=== PATIENT | male | born 1955 | race Two or more races ===

== ENCOUNTER 2016-01-26 15:30 | Inpatient (IN) | payer OTHER ==
[2016-01-26 17:07] VITALS: BMI 28.3
--- NOTE | 2016-01-26 17:42 | HP ---
CIWA Score - CIWA Score Nausea/Vomitin-Mild Nausea/No Vomiting Muscle Tremors: 4-Moderate,w/Arms Extend Anxiety: 4-Mod. Anxious/Guarded Agitation: 4-Moderately Restless Paroxysmal Sweats: 1-Minimal Palms Moist Orientation: 1-Uncertain about Date Tacttile Disturbances: 0-None Auditory Disturbances: 0-None Visual Disturbances: 0-None Headache: 0-None Present CIWA-Ar Total Score: 15 Admission ROS BHS - HPI Chief Complaint: WITHDRAWAL SX Allergies/Adverse Reactions: Allergies Allergy/AdvReac Type Severity Reaction Status Date / Time No Known Allergies Allergy Verified 01/26/16 17:27 History of Present Illness: 60 YEARS OLD MALE WITH LONG HISTORY OF ALCOHOL DEPENDENCE DENIES MEDICAL HAS DEPRESSION IS ADMITTED TO DETOX Exam Limitations: No Limitations - Ebola screening Have you traveled outside of the country in the last 21 days: No Have you had contact with anyone from an Ebola affected area: No Have you been sick,other than usual withdrawal symptoms: No Do you have a fever: No - Review of Systems Constitutional: Chills, Changes in sleep, Weight Stable EENT: reports: No Symptoms Reported Respiratory: reports: Cough (POST NASAL DRIP) Cardiac: reports: No Symptoms Reported GI: reports: Poor Fluid Intake, Indigestion, Abdominal cramping : reports: No Symptoms Reported Musculoskeletal: reports: Back Pain, Joint Pain, Muscle Pain, Neck Pain Neuro: reports: Tremors Endocrine: reports: No Symptoms Reported Hematology: reports: No Symptoms Reported Psychiatric: reports: Judgement Intact, Depressed Other Systems: Reviewed and Negative Patient History - Patient Medical History Hx Anemia: No Hx Asthma: No Hx Chronic Obstructive Pulmonary Disease (COPD): No Hx Cancer: No Hx Cardiac Disorders: No Hx Congestive Heart Failure: No Hx Hypertension: No Hx Hypercholesterolemia: No Hx Pacemaker: No HX Cerebrovascular Accident: No Hx Seizures: No Hx Dementia: No Hx Diabetes: No Hx Gastrointestinal Disorders: No Hx Liver Disease: No Hx Genitourinary Disorders: Yes (11/2015 DUE TO VACOMYCIN) Hx Sexually Transmitted Disorders: No Hx Renal Disease (ESRD): No Hx Thyroid Disease: No Hx Human Immunodeficiency Virus (HIV): No Hx Hepatitis C: No Hx Depression: Yes Hx Suicide Attempt: No Hx Bipolar Disorder: No Hx Schizophrenia: No - Patient Surgical History Past Surgical History: Yes Hx Neurologic Surgery: Yes (CERVICAL/BACK) Hx Cataract Extraction: No Hx Cardiac Surgery: No Hx Lung Surgery: No Hx Breast Surgery: No Hx Breast Biopsy: No Hx Abdominal Surgery: No Hx Appendectomy: No Hx Cholecystectomy: No Hx Genitourinary Surgery: No Hx Orthopedic Surgery: Yes (LEFT FIFTH FINGER FX 2016) Anesthesia Reaction: No - PPD History Previous Implant?: Yes Documented Results: Negative w/o proof Implanted On Prior R Admission?: No PPD to be Administered?: Yes - Smoking Cessation Smoking history: Former smoker Have you smoked in the past 12 months: No Aproximately how many cigarettes per day: 0 Cigars Per Day: 0 Hx Chewing Tobacco Use: No Initiated information on smoking cessation: Yes 'Breaking Loose' booklet given: 01/26/16 - Substance & Tx. History Hx Alcohol Use: Yes Hx Substance Use: Yes Substance Use Type: Alcohol, Cocaine Hx Substance Use Treatment: Yes - Substances Abused Alcohol Route: Oral Frequency: Daily Amount used: CHERELLE OLSEN Age of first use: 19 Date of Last Use: 01/26/16 Family Disease History - Family Disease History Family Disease History: [place]: Father (), Other: Mother () Admission Physical Exam S - Vital Signs Vital Signs: Vital Signs - 24 hr 01/26/16 17:04 Temperature 97.1 F L Pulse Rate 92 H Respiratory 18 Rate Blood Pressure 132/104 - Physical General Appearance: Yes: Nourished, Appropriately Dressed, Tremorous, Irritable , Sweating, Anxious HEENTM: Yes: Hearing grossly Normal, Normal ENT Inspection, Normocephalic, Normal Voice Respiratory: Yes: Chest Non-Tender, Lungs Clear, Normal Breath Sounds, No Respiratory Distress, No Accessory Muscle Use Neck: Yes: Supple, Trachea in good position Breast: Yes: Breasts Symetrical Cardiology: Yes: Regular Rhythm, S1, S2, Tachycardia Abdominal: Yes: Non Tender, Soft Genitourinary: Yes: Within Normal Limits Back: Yes: Normal Inspection Musculoskeletal: Yes: full range of Motion, Gait Steady, Back pain, Muscle Pain Extremities: Yes: Normal Inspection, Normal Range of Motion, Non-Tender, Tremors Neurological: Yes: Alert, Motor Strength 5/5, Normal Response, Depressed Affect Integumentary: Yes: Normal Color, Warm, Clammy Lymphatic: Yes: Within Normal Limits - Diagnostic (1) Alcohol dependence with uncomplicated withdrawal Current Visit: Yes Status: Acute (2) Depression Current Visit: Yes Status: Suspected Qualifiers: Depression Type: dysthymia Qualified Code(s): F34.1 - Dysthymic disorder (3) History of gastroesophageal reflux (GERD) Current Visit: Yes Status: Chronic (4) Multiple sites of spinal cord injury Current Visit: Yes Status: Chronic Comment: TRAUMA 1988 - SURGERIES 2015 Cleared for Admission [facility] - Detox or Rehab [facility] Level of Care: Medically Managed Detox Regimen/Protocol: Librium S Breath Alcohol Content Breath Alcohol Content: 0 Vital Signs - Vital Signs Vital Signs Refused: No Temperature: 97.1 F Temperature Source: Oral Pulse Rate: 92 Respiratory Rate: 18 Blood Pressure: 132/104 BP Location: Left Arm Blood Pressure Position: Sitting - Height Height: 5 ft 7 in - Weight Weight: 181 lb Weight Measurement Method: Standing Scale Body Mass Index (BMI): 28.3 - Bowel Function Bowel Movement: No Urine Drug Screen - Results Drug Screen Negative: No Urine Drug Screen Results: CHRIS-Cocaine, OPI-Opiates
[2016-01-26] MEDS ORDERED: P-EPHED 60MG/TRIPROLIDI 2.5MG TABLET PO PRN (17:48)
[2016-01-26] MEDS ORDERED: ACETAMINOPHEN 325 MG TABLET (FP) PO PRN (17:48)
[2016-01-26] MEDS ORDERED: MAGNESIUM HYDROX 2400MG/30ML ORAL SUSPENSION 30 ML CUP PO PRN (17:48)
[2016-01-26] MEDS ORDERED: MAGNESIUM CITRATE 300 ML BOTTLE PO PRN (17:48)
[2016-01-26] MEDS ORDERED: guaiFENesin/D-METHORPHAN HB 10 ML UNIT-DOSE CUPS PO PRN (17:48)
[2016-01-26] MEDS ORDERED: chlordiazePOXIDE HCL 25 MG CAPSULE PO PRN (17:48)
[2016-01-26] MEDS ORDERED: LOPERAMIDE HCL 2 MG CAPSULE PO PRN (17:48)
[2016-01-26] MEDS ORDERED: MENTHOL/PHENOL 1 EACH UD MM PRN (17:48)
[2016-01-26] MEDS ORDERED: hydrOXYzine PAMOATE 50 MG CAPSULE (FP) PO PRN (17:54)
[2016-01-26] MEDS ORDERED: cloNIDine HCL 0.1 MG TABLET PO PRN (17:56)
[2016-01-26] MEDS ORDERED: chlordiazePOXIDE HCL 25 MG CAPSULE PO ONE (18:30)
[2016-01-26] MEDS: chlordiazePOXIDE HCL 25 MG CAPSULE PO SCH (22:58)
[2016-01-26] MEDS: THIAMINE HCL 100 MG TABLET (FP) PO SCH (22:59)
[2016-01-27] MEDS: chlordiazePOXIDE HCL 25 MG CAPSULE PO SCH ×2 (06:10→22:49)
[2016-01-27 09:29] LABS: MCH 30.1 pg (25.7-33.7); MCHC 33.3 g/dl (32.0-35.9); MEAN CELL VOLUME 90.4 fl (80-96); MEAN PLT VOLUME 8.6 fl (7.5-11.1); PLATELET COUNT 272 K/MM3 (134-434); RDW 13.6 % (11.9-15.9)
[2016-01-27 09:45] LABS: ALBUMIN 3.5 g/dl (3.4-5.0); ANION GAP 10 (8-16); BILIRUBIN,TOTAL 0.4 mg/dL (0.2-1.0); CALCIUM 8.8 mg/dL (8.5-10.1); CO2 26 mmol/L (21-32); CREATININE 1.1 mg/dL (0.7-1.3); GLUCOSE,RANDOM 90 mg/dL (74-106); SGOT/AST 13 U/L (15-37); SGPT/ALT 29 U/L (12-78); TOT PROT 6.5 g/dl (6.4-8.2)
[2016-01-27 09:46] LABS: ALK PHOS 53 U/L (45-117)
--- NOTE | 2016-01-27 09:52 | PN ---
[facility] CIWA - CIWA Score Nausea/Vomitin-No Nausea/No Vomiting Muscle Tremors: 2 Anxiety: 4-Mod. Anxious/Guarded Agitation: 2 Paroxysmal Sweats: 3 Orientation: 0-Oriented Tacttile Disturbances: 0-None Auditory Disturbances: 0-None Visual Disturbances: 0-None Headache: 0-None Present CIWA-Ar Total Score: 11 S Progress Note (SOAP) Subjective: ANXIETY,TREMORS,SWEATING,INTERRUPTED SLEEP,RESTLESS. Objective: 01/27/16 09:50 Vital Signs - 8 hr 01/27/16 01/27/16 03:30 06:39 Temperature 95.6 F L Pulse Rate 76 Respiratory 20 18 Rate Blood Pressure 133/82 Assessment: 01/27/16 09:51 WITHDRAWAL SX. Plan: CONTINUE DETOX
--- NOTE | 2016-01-27 10:02 | CONSULT ---
[facility] Psychiatric Consult - Data Date of interview: 01/27/16 Admission source: [facility] Identifying data: Mr Milligan is a 60 years old male, father of 2 daughters, homeless seeking detox treatment for alcohol Substance Abuse History: - Smoking Cessation. Smoking history: Former smoker. Have you smoked in the past 12 months: No. Aproximately how many cigarettes per day: 0. Cigars Per Day: 0. Hx Chewing Tobacco Use: No. Initiated information on smoking cessation: Yes. 'Breaking Loose' booklet given: . - Substance & Tx. History. Hx Alcohol Use: Yes. Hx Substance Use: Yes. Substance Use Type: Alcohol, Cocaine. Hx Substance Use Treatment: Yes. - Substances Abused. Alcohol. Route: Oral. Frequency: Daily. Amount used: QUART VOLKA. Age of first use: 19. Date of Last Use: 01/26/16 Medical History: Significant for history of S/P cervical spine and back surgery and S/P fracture left 5th finger in 2005 Psychiatric History: Reports receiving treatment depression since 1992. He currently sees Dr Hever Jeffers, a private psychiatrist in [place] and he is prescribed Wellbutrin XL 300 mg po daily, trazadone 50 mg po HS, Xanax 2 mg po BID prn and Adderal 20 mg po BID. Denies history of previous psychiatric hospitalization or suicidal attempt. At present, Denies feeling depressed but reports experiences difficulty to sleep Mental Status Exam - Mental Status Exam Alert and Oriented to: Time, Place, Person Cognitive Function: Fair Patient Appearance: Well Groomed Mood: Hopeful, Euthymic Affect: Appropriate Patient Behavior: Cooperative Speech Pattern: Clear Voice Loudness: Normal Thought Process: Intact Thought Disorder: Not Present Hallucinations: Denies Suicidal Ideation: Denies Homicidal Ideation: Denies Insight/Judgement: Poor Sleep: Poorly Appetite: Good Muscle strength/Tone: Normal Gait/Station: Normal Psychiatric Findings - Problem List ([place] 1, 2,3) (1) MDD (major depressive disorder), recurrent episode Current Visit: Yes Status: Acute (2) Alcohol dependence with uncomplicated withdrawal Current Visit: Yes Status: Acute (3) History of gastroesophageal reflux (GERD) Current Visit: Yes Status: Chronic (4) Multiple sites of spinal cord injury Current Visit: Yes Status: Chronic Comment: TRAUMA 1988 - SURGERIES 2015 - Initial Treatment Plan Initial Treatment Plan: Continue Well butrin Xl 300 mg po daily and Trazadone 50 mg po HS
[2016-01-27] MEDS: PRENATAL VITAMINS W/ FOLIC ACID TABLET (FP) PO SCH (10:43)
[2016-01-27] MEDS: LIDOCAINE 5% TOPICAL PATCH TP SCH (10:45)
[2016-01-27 15:04] LABS: URINE APPEARANCE CLEAR; URINE BILIRUBIN NEGATIVE (NEGATIVE); URINE BLOOD NEGATIVE (NEGATIVE); URINE COLOR LTYELLOW; URINE GLUCOSE (UA) NEGATIVE (NEGATIVE); URINE KETONE NEGATIVE (NEGATIVE); URINE LEUK ESTERASE NEGATIVE (NEGATIVE); URINE NITRITE NEGATIVE (NEGATIVE); URINE PROTEIN NEGATIVE (NEGATIVE); URINE UROBILINOGEN NEGATIVE E.U./dl (0.2-1.0)
[2016-01-27] MEDS: traZODone HCL 50 MG TABLET (FP) PO SCH (22:48)
[2016-01-27] MEDS: THIAMINE HCL 100 MG TABLET (FP) PO SCH (22:48)
[2016-01-28] MEDS: chlordiazePOXIDE HCL 25 MG CAPSULE PO SCH ×3 (06:23→17:41)
[2016-01-28] MEDS: CYCLOBENZAPRINE HCL 10 MG TABLET (FP) PO PRN (06:24)
[2016-01-28] MEDS: LIDOCAINE 5% TOPICAL PATCH TP SCH (11:17)
[2016-01-28] MEDS: PRENATAL VITAMINS W/ FOLIC ACID TABLET (FP) PO SCH (11:17)
--- NOTE | 2016-01-28 12:06 | PN ---
[facility] CIWA - CIWA Score Nausea/Vomitin-No Nausea/No Vomiting Muscle Tremors: 2 Anxiety: 3 Agitation: 3 Paroxysmal Sweats: 2 Orientation: 0-Oriented Tacttile Disturbances: 0-None Auditory Disturbances: 0-None Visual Disturbances: 0-None Headache: 0-None Present CIWA-Ar Total Score: 10 S Progress Note (SOAP) Subjective: SWEATING,INTERRUPTED SLEEP,RESTLESS Objective: 01/28/16 12:05 Vital Signs - 8 hr 01/28/16 01/28/16 06:47 11:25 Temperature 96.8 F L 96.3 F L Pulse Rate 81 79 Respiratory 18 20 Rate Blood Pressure 140/88 153/99 Laboratory Last Values WBC 10.0 K/mm3 (4.0-10.0) 01/27/16 06:00 RBC 4.34 M/mm3 (4.00-5.60) 01/27/16 06:00 Hgb 13.1 GM/dL (11.7-16.9) 01/27/16 06:00 Hct 39.2 % (35.4-49) 01/27/16 06:00 MCV 90.4 fl (80-96) 01/27/16 06:00 MCHC 33.3 g/dl (32.0-35.9) 01/27/16 06:00 RDW 13.6 % (11.9-15.9) 01/27/16 06:00 Plt Count 272 K/MM3 (134-434) 01/27/16 06:00 MPV 8.6 fl (7.5-11.1) 01/27/16 06:00 Sodium 142 mmol/L (136-145) 01/27/16 06:00 Potassium 4.5 mmol/L (3.5-5.1) 01/27/16 06:00 Chloride 106 mmol/L (98-107) 01/27/16 06:00 Carbon Dioxide 26 mmol/L (21-32) 01/27/16 06:00 Anion Gap 10 (8-16) 01/27/16 06:00 BUN 14 mg/dL (7-18) 01/27/16 06:00 Creatinine 1.1 mg/dL (0.7-1.3) 01/27/16 06:00 Creat Clearance w eGFR > 60 (>60) 01/27/16 06:00 Random Glucose 90 mg/dL (74-106) 01/27/16 06:00 Calcium 8.8 mg/dL (8.5-10.1) 01/27/16 06:00 Total Bilirubin 0.4 mg/dL (0.2-1.0) 01/27/16 06:00 AST 13 U/L (15-37) L 01/27/16 06:00 ALT 29 U/L (12-78) 01/27/16 06:00 Alkaline Phosphatase 53 U/L (45-117) 01/27/16 06:00 Total Protein 6.5 g/dl (6.4-8.2) 01/27/16 06:00 Albumin 3.5 g/dl (3.4-5.0) 01/27/16 06:00 Urine Color Ltyellow 01/27/16 12:05 Urine Appearance Clear 01/27/16 12:05 Urine pH 6.0 (5.0-8.0) 01/27/16 12:05 Ur Specific [place] 1.012 (1.001-1.035) 01/27/16 12:05 Urine Protein Negative (NEGATIVE) 01/27/16 12:05 Urine Glucose (UA) Negative (NEGATIVE) 01/27/16 12:05 Urine Ketones Negative (NEGATIVE) 01/27/16 12:05 Urine Blood Negative (NEGATIVE) 01/27/16 12:05 Urine Nitrite Negative (NEGATIVE) 01/27/16 12:05 Urine Bilirubin Negative (NEGATIVE) 01/27/16 12:05 Urine Urobilinogen Negative E.U./dl (0.2-1.0) 01/27/16 12:05 Ur Leukocyte Esterase Negative (NEGATIVE) 01/27/16 12:05 RPR Titer Nonreactive (NONREACTIVE) 01/27/16 06:00 LABS NOTED Assessment: 01/28/16 12:05 WITHDRAWAL SX. Plan: CONTINUE DETOX
[2016-01-28] MEDS: IBUPROFEN 400 MG TABLET (FP) PO PRN (13:07)
[2016-01-28] MEDS: THIAMINE HCL 100 MG TABLET (FP) PO SCH (22:25)
[2016-01-28] MEDS: chlordiazePOXIDE 5 MG CAPSULE PO SCH (22:25)
[2016-01-28] MEDS: traZODone HCL 50 MG TABLET (FP) PO SCH (22:25)
[2016-01-29] MEDS: chlordiazePOXIDE 5 MG CAPSULE PO SCH ×2 (05:57→10:16)
[2016-01-29] MEDS: CYCLOBENZAPRINE HCL 10 MG TABLET (FP) PO PRN (05:57)
[2016-01-29] MEDS: PRENATAL VITAMINS W/ FOLIC ACID TABLET (FP) PO SCH (10:16)
[2016-01-29] MEDS: LIDOCAINE 5% TOPICAL PATCH TP SCH (10:16)
--- NOTE | 2016-01-29 12:15 | PN ---
[facility] Progress Note (SOAP) Subjective: SWEATING,RESTLESS. Objective: 01/29/16 12:15 Vital Signs - 8 hr 01/29/16 01/29/16 06:26 10:00 Temperature 96.1 F L 98.2 F Pulse Rate 78 76 Respiratory 16 16 Rate Blood Pressure 132/87 129/88 Laboratory Last Values WBC 10.0 K/mm3 (4.0-10.0) 01/27/16 06:00 RBC 4.34 M/mm3 (4.00-5.60) 01/27/16 06:00 Hgb 13.1 GM/dL (11.7-16.9) 01/27/16 06:00 Hct 39.2 % (35.4-49) 01/27/16 06:00 MCV 90.4 fl (80-96) 01/27/16 06:00 MCHC 33.3 g/dl (32.0-35.9) 01/27/16 06:00 RDW 13.6 % (11.9-15.9) 01/27/16 06:00 Plt Count 272 K/MM3 (134-434) 01/27/16 06:00 MPV 8.6 fl (7.5-11.1) 01/27/16 06:00 Sodium 142 mmol/L (136-145) 01/27/16 06:00 Potassium 4.5 mmol/L (3.5-5.1) 01/27/16 06:00 Chloride 106 mmol/L (98-107) 01/27/16 06:00 Carbon Dioxide 26 mmol/L (21-32) 01/27/16 06:00 Anion Gap 10 (8-16) 01/27/16 06:00 BUN 14 mg/dL (7-18) 01/27/16 06:00 Creatinine 1.1 mg/dL (0.7-1.3) 01/27/16 06:00 Creat Clearance w eGFR > 60 (>60) 01/27/16 06:00 Random Glucose 90 mg/dL (74-106) 01/27/16 06:00 Calcium 8.8 mg/dL (8.5-10.1) 01/27/16 06:00 Total Bilirubin 0.4 mg/dL (0.2-1.0) 01/27/16 06:00 AST 13 U/L (15-37) L 01/27/16 06:00 ALT 29 U/L (12-78) 01/27/16 06:00 Alkaline Phosphatase 53 U/L (45-117) 01/27/16 06:00 Total Protein 6.5 g/dl (6.4-8.2) 01/27/16 06:00 Albumin 3.5 g/dl (3.4-5.0) 01/27/16 06:00 Urine Color Ltyellow 01/27/16 12:05 Urine Appearance Clear 01/27/16 12:05 Urine pH 6.0 (5.0-8.0) 01/27/16 12:05 Ur Specific [place] 1.012 (1.001-1.035) 01/27/16 12:05 Urine Protein Negative (NEGATIVE) 01/27/16 12:05 Urine Glucose (UA) Negative (NEGATIVE) 01/27/16 12:05 Urine Ketones Negative (NEGATIVE) 01/27/16 12:05 Urine Blood Negative (NEGATIVE) 01/27/16 12:05 Urine Nitrite Negative (NEGATIVE) 01/27/16 12:05 Urine Bilirubin Negative (NEGATIVE) 01/27/16 12:05 Urine Urobilinogen Negative E.U./dl (0.2-1.0) 01/27/16 12:05 Ur Leukocyte Esterase Negative (NEGATIVE) 01/27/16 12:05 RPR Titer Nonreactive (NONREACTIVE) 01/27/16 06:00 Assessment: 01/29/16 12:15 WITHDRAWAL SX. Plan: CONTINUE DETOX
[2016-01-29] MEDS: IBUPROFEN 400 MG TABLET (FP) PO PRN (14:01)
[2016-01-29] MEDS: diphenhydrAMINE HCL 50 MG CAPSULE PO PRN (22:07)
[2016-01-29] MEDS: THIAMINE HCL 100 MG TABLET (FP) PO SCH (22:07)
[2016-01-29] MEDS: traZODone HCL 50 MG TABLET (FP) PO SCH (22:07)
[2016-01-29] MEDS ORDERED: chlordiazePOXIDE HCL 10 MG CAPSULE PO SCH (23:00)
[2016-01-30] MEDS: CYCLOBENZAPRINE HCL 10 MG TABLET (FP) PO PRN ×2 (05:49→21:45)
[2016-01-30] MEDS: PRENATAL VITAMINS W/ FOLIC ACID TABLET (FP) PO SCH (10:21)
[2016-01-30] MEDS: LIDOCAINE 5% TOPICAL PATCH TP SCH (10:31)
--- NOTE | 2016-01-30 10:43 | DS ---
[facility] Detox Discharge Summary Admission Date: 01/26/16 Discharge Date: 01/30/16 - History Present History: Alcohol Dependence Pertinent Past History: GERD - Physical Exam Results Vital Signs: Vital Signs Temperature 95.0 F L 01/30/16 10:26 Pulse Rate 91 H 01/30/16 10:26 Respiratory Rate 18 01/30/16 10:26 Blood Pressure 129/82 01/30/16 10:26 O2 Sat by Pulse Oximetry (%) Pertinent Admission Physical Exam Findings: WITHDRAWAL SX. Laboratory Last Values WBC 10.0 K/mm3 (4.0-10.0) 01/27/16 06:00 RBC 4.34 M/mm3 (4.00-5.60) 01/27/16 06:00 Hgb 13.1 GM/dL (11.7-16.9) 01/27/16 06:00 Hct 39.2 % (35.4-49) 01/27/16 06:00 MCV 90.4 fl (80-96) 01/27/16 06:00 MCHC 33.3 g/dl (32.0-35.9) 01/27/16 06:00 RDW 13.6 % (11.9-15.9) 01/27/16 06:00 Plt Count 272 K/MM3 (134-434) 01/27/16 06:00 MPV 8.6 fl (7.5-11.1) 01/27/16 06:00 Sodium 142 mmol/L (136-145) 01/27/16 06:00 Potassium 4.5 mmol/L (3.5-5.1) 01/27/16 06:00 Chloride 106 mmol/L (98-107) 01/27/16 06:00 Carbon Dioxide 26 mmol/L (21-32) 01/27/16 06:00 Anion Gap 10 (8-16) 01/27/16 06:00 BUN 14 mg/dL (7-18) 01/27/16 06:00 Creatinine 1.1 mg/dL (0.7-1.3) 01/27/16 06:00 Creat Clearance w eGFR > 60 (>60) 01/27/16 06:00 Random Glucose 90 mg/dL (74-106) 01/27/16 06:00 Calcium 8.8 mg/dL (8.5-10.1) 01/27/16 06:00 Total Bilirubin 0.4 mg/dL (0.2-1.0) 01/27/16 06:00 AST 13 U/L (15-37) L 01/27/16 06:00 ALT 29 U/L (12-78) 01/27/16 06:00 Alkaline Phosphatase 53 U/L (45-117) 01/27/16 06:00 Total Protein 6.5 g/dl (6.4-8.2) 01/27/16 06:00 Albumin 3.5 g/dl (3.4-5.0) 01/27/16 06:00 Urine Color Ltyellow 01/27/16 12:05 Urine Appearance Clear 01/27/16 12:05 Urine pH 6.0 (5.0-8.0) 01/27/16 12:05 Ur Specific [place] 1.012 (1.001-1.035) 01/27/16 12:05 Urine Protein Negative (NEGATIVE) 01/27/16 12:05 Urine Glucose (UA) Negative (NEGATIVE) 01/27/16 12:05 Urine Ketones Negative (NEGATIVE) 01/27/16 12:05 Urine Blood Negative (NEGATIVE) 01/27/16 12:05 Urine Nitrite Negative (NEGATIVE) 01/27/16 12:05 Urine Bilirubin Negative (NEGATIVE) 01/27/16 12:05 Urine Urobilinogen Negative E.U./dl (0.2-1.0) 01/27/16 12:05 Ur Leukocyte Esterase Negative (NEGATIVE) 01/27/16 12:05 RPR Titer Nonreactive (NONREACTIVE) 01/27/16 06:00 LABS NOTED - Treatment Hospital Course: Detox Protocol Followed, Detoxed Safely, Responded well, Discharged Condition Good, Rehab Referral Accepted - Medication Discharge Medications: Ambulatory Orders Alprazolam [Xanax] 2 mg PO DAILY 01/26/16 Bupropion HCl [Wellbutrin -] 100 mg PO BID 01/26/16 Hydroxyzine Pamoate [Vistaril -] 25 mg PO TID 01/26/16 Ibuprofen [Motrin -] 800 mg PO TID 01/26/16 Bupropion HCl [Wellbutrin Xl -] 300 mg PO DAILY #30 tab.sr.24h 01/27/16 Trazodone HCl [Desyrel -] 50 mg PO HS #30 tablet 01/27/16 - Diagnosis (1) Alcohol dependence with uncomplicated withdrawal Current Visit: Yes Status: Acute (2) MDD (major depressive disorder), recurrent episode Current Visit: Yes Status: Acute (3) History of gastroesophageal reflux (GERD) Current Visit: Yes Status: Chronic - AMA Did Patient Leave Against Medical Advice: No
[2016-01-30] MEDS: IBUPROFEN 400 MG TABLET (FP) PO PRN (15:49)
[2016-01-30] MEDS: diphenhydrAMINE HCL 50 MG CAPSULE PO PRN (21:44)
[2016-01-30] MEDS: traZODone HCL 50 MG TABLET (FP) PO SCH (21:44)
[2016-01-30] MEDS: THIAMINE HCL 100 MG TABLET (FP) PO SCH (21:44)
--- NOTE | 2016-01-31 06:59 | HP ---
Psychiatrist Admission - Data Date of interview: 01/31/16 Admission source: 3N Identifying data: This is the first [facility] admission for this 60 years old male, father of 2 daughters, unemployed on SSD/pension from fire department, homeless Medical History: Significant for history of GERD, S/P cervical spine and back surgery and S/P fracture left 5th finger in 2005 Psychiatric History: Reports receiving treatment depression since 1992. He currently sees Dr Hever Jeffers, a private psychiatrist in [place] and he is prescribed Wellbutrin XL 300 mg po daily, Trazadone 50 mg po HS, Xanax 2 mg po BID prn and Adderal 20 mg po BID. Denies history of previous psychiatric hospitalization or suicidal attempt. Physical/Sexual Abuse/Trauma History: Denies history of physical, sexual abuse as well as DV relationship Additional Comment: Reports history of 4 previous misdemeanor arrests for disorderly conduct. Denies being on probation at present Vital Signs: Vital Signs - 24 hr 01/30/16 01/31/16 01/31/16 10:26 00:30 03:30 Temperature 95.0 F L Pulse Rate 91 H Respiratory 18 18 18 Rate Blood Pressure 129/82 01/31/16 06:36 Temperature 96.7 F L Pulse Rate 81 Respiratory 18 Rate Blood Pressure 144/89 Allergies/Adverse Reactions: Allergies Allergy/AdvReac Type Severity Reaction Status Date / Time No Known Allergies Allergy Verified 01/26/16 17:27 Date of last physical exam: 01/26/16 Concur with the findings of this exam: Yes - Substance Abuse/Tx History Hx Alcohol Use: Yes Hx Substance Use: No Substance Use Type: Alcohol (Started drinking alcohol at age 19, consumes one quart of vodka daily. Last drink on 01/26/16) Hx Substance Use Treatment: Yes (2-3 previous inpt detox & multiple rehab) - Admission Criteria Previous failed treatment: No Poor recovery environment: Yes Comorbidities: Yes Lacks judgement: Yes Mental Status Exam - Mental Status Exam Alert and Oriented to: Time, Place, Person Cognitive Function: Fair Patient Appearance: Well Groomed Mood: Hopeful, Euthymic Affect: Appropriate Patient Behavior: Cooperative Speech Pattern: Clear Voice Loudness: Normal Thought Process: Intact Thought Disorder: Not Present Hallucinations: Denies Suicidal Ideation: Denies Homicidal Ideation: Denies Insight/Judgement: Poor Sleep: Fair Appetite: Good Muscle strength/Tone: Normal Gait/Station: Normal Psychiatric Findings - Problem List ([place] 1, 2,3) (1) Alcohol dependence with uncomplicated withdrawal Current Visit: Yes Status: Acute (2) MDD (major depressive disorder), recurrent episode, moderate Current Visit: Yes Status: Acute (3) GERD (gastroesophageal reflux disease) Current Visit: Yes Status: Acute (4) Multiple sites of spinal cord injury Current Visit: Yes Status: Acute - Initial Treatment Plan Initial Treatment Plan: 1) Continue Wellbutrin XL 300 mg po daily & Trazadone 50 mg po HS. 2) Monitor progress
[2016-01-31] MEDS: PRENATAL VITAMINS W/ FOLIC ACID TABLET (FP) PO SCH (09:55)
[2016-01-31] MEDS: LIDOCAINE 5% TOPICAL PATCH TP SCH (09:56)
[2016-01-31] MEDS: diphenhydrAMINE HCL 50 MG CAPSULE PO PRN (21:53)
[2016-01-31] MEDS: traZODone HCL 50 MG TABLET (FP) PO SCH (21:53)
[2016-01-31] MEDS: THIAMINE HCL 100 MG TABLET (FP) PO SCH (21:53)
[2016-01-31] MEDS: CYCLOBENZAPRINE HCL 10 MG TABLET (FP) PO PRN (21:55)
[2016-02-01] MEDS: IBUPROFEN 400 MG TABLET (FP) PO PRN ×2 (08:33→19:24)
[2016-02-01] MEDS: CYCLOBENZAPRINE HCL 10 MG TABLET (FP) PO PRN ×2 (08:34→21:02)
[2016-02-01] MEDS: LIDOCAINE 5% TOPICAL PATCH TP SCH (09:58)
[2016-02-01] MEDS: PRENATAL VITAMINS W/ FOLIC ACID TABLET (FP) PO SCH (09:58)
[2016-02-01] MEDS: diphenhydrAMINE HCL 50 MG CAPSULE PO PRN (21:02)
[2016-02-01] MEDS: traZODone HCL 50 MG TABLET (FP) PO SCH (21:02)
[2016-02-01] MEDS: THIAMINE HCL 100 MG TABLET (FP) PO SCH (21:02)
[2016-02-02] MEDS: IBUPROFEN 400 MG TABLET (FP) PO PRN ×2 (06:01→16:19)
[2016-02-02] MEDS: PRENATAL VITAMINS W/ FOLIC ACID TABLET (FP) PO SCH (10:02)
[2016-02-02] MEDS: LIDOCAINE 5% TOPICAL PATCH TP SCH ×2 (10:02→10:03)
[2016-02-02] MEDS: METHYL SALICYLATE/MENTHOL OINT 30 GM TUBE TP SCH (21:25)
[2016-02-02] MEDS: CYCLOBENZAPRINE HCL 10 MG TABLET (FP) PO PRN (21:25)
[2016-02-02] MEDS: THIAMINE HCL 100 MG TABLET (FP) PO SCH (21:25)
[2016-02-02] MEDS: diphenhydrAMINE HCL 50 MG CAPSULE PO PRN (21:25)
[2016-02-02] MEDS: traZODone HCL 50 MG TABLET (FP) PO SCH (21:25)
[2016-02-03] MEDS: PRENATAL VITAMINS W/ FOLIC ACID TABLET (FP) PO SCH (10:09)
[2016-02-03] MEDS: LIDOCAINE 5% TOPICAL PATCH TP SCH ×2 (10:09→10:11)
[2016-02-03] MEDS: METHYL SALICYLATE/MENTHOL OINT 30 GM TUBE TP SCH (10:11)
[2016-02-03] MEDS: IBUPROFEN 400 MG TABLET (FP) PO PRN ×2 (12:31→18:13)
[2016-02-03] MEDS: CYCLOBENZAPRINE HCL 10 MG TABLET (FP) PO PRN ×2 (12:31→21:50)
[2016-02-03] MEDS: traZODone HCL 50 MG TABLET (FP) PO SCH (21:49)
[2016-02-03] MEDS: THIAMINE HCL 100 MG TABLET (FP) PO SCH (21:49)
[2016-02-03] MEDS: diphenhydrAMINE HCL 50 MG CAPSULE PO PRN (21:49)
[2016-02-04] MEDS: IBUPROFEN 400 MG TABLET (FP) PO PRN ×2 (07:00→17:52)
[2016-02-04] MEDS: PRENATAL VITAMINS W/ FOLIC ACID TABLET (FP) PO SCH (09:38)
[2016-02-04] MEDS: METHYL SALICYLATE/MENTHOL OINT 30 GM TUBE TP SCH (09:38)
[2016-02-04] MEDS: LIDOCAINE 5% TOPICAL PATCH TP SCH ×2 (09:38→09:39)
[2016-02-04] MEDS: CYCLOBENZAPRINE HCL 10 MG TABLET (FP) PO PRN ×2 (09:40→21:38)
[2016-02-04] MEDS: THIAMINE HCL 100 MG TABLET (FP) PO SCH (21:38)
[2016-02-04] MEDS: traZODone HCL 50 MG TABLET (FP) PO SCH (21:38)
[2016-02-04] MEDS: diphenhydrAMINE HCL 50 MG CAPSULE PO PRN (21:38)
[2016-02-05] MEDS: PRENATAL VITAMINS W/ FOLIC ACID TABLET (FP) PO SCH (09:51)
[2016-02-05] MEDS: LIDOCAINE 5% TOPICAL PATCH TP SCH ×2 (09:52→11:33)
[2016-02-05] MEDS: METHYL SALICYLATE/MENTHOL OINT 30 GM TUBE TP SCH (09:52)
[2016-02-05] MEDS: CYCLOBENZAPRINE HCL 10 MG TABLET (FP) PO PRN ×2 (09:53→21:44)
[2016-02-05] MEDS: IBUPROFEN 400 MG TABLET (FP) PO PRN ×2 (09:53→21:43)
[2016-02-05] MEDS: traZODone HCL 50 MG TABLET (FP) PO SCH (21:41)
[2016-02-05] MEDS: THIAMINE HCL 100 MG TABLET (FP) PO SCH (21:41)
[2016-02-05] MEDS: diphenhydrAMINE HCL 50 MG CAPSULE PO PRN (21:41)
[2016-02-06] MEDS: PRENATAL VITAMINS W/ FOLIC ACID TABLET (FP) PO SCH (10:09)
[2016-02-06] MEDS: METHYL SALICYLATE/MENTHOL OINT 30 GM TUBE TP SCH (10:10)
[2016-02-06] MEDS: LIDOCAINE 5% TOPICAL PATCH TP SCH ×2 (10:10)
[2016-02-06] MEDS: CYCLOBENZAPRINE HCL 10 MG TABLET (FP) PO PRN ×2 (10:12→22:13)
[2016-02-06] MEDS: DOXYCYCLINE HYCLATE 100 MG TABLET PO SCH (17:43)
[2016-02-06] MEDS: THIAMINE HCL 100 MG TABLET (FP) PO SCH (22:12)
[2016-02-06] MEDS: diphenhydrAMINE HCL 50 MG CAPSULE PO PRN (22:12)
[2016-02-06] MEDS: traZODone HCL 50 MG TABLET (FP) PO SCH (22:12)
[2016-02-07] MEDS: PRENATAL VITAMINS W/ FOLIC ACID TABLET (FP) PO SCH (09:53)
[2016-02-07] MEDS: DOXYCYCLINE HYCLATE 100 MG TABLET PO SCH ×2 (09:53→17:29)
[2016-02-07] MEDS: METHYL SALICYLATE/MENTHOL OINT 30 GM TUBE TP SCH (09:53)
[2016-02-07] MEDS: LIDOCAINE 5% TOPICAL PATCH TP SCH ×2 (09:53→09:54)
[2016-02-07] MEDS: IBUPROFEN 400 MG TABLET (FP) PO PRN ×2 (09:54→17:30)
[2016-02-07] MEDS: CYCLOBENZAPRINE HCL 10 MG TABLET (FP) PO PRN (21:24)
[2016-02-07] MEDS: THIAMINE HCL 100 MG TABLET (FP) PO SCH (21:24)
[2016-02-07] MEDS: diphenhydrAMINE HCL 50 MG CAPSULE PO PRN (21:24)
[2016-02-07] MEDS: traZODone HCL 50 MG TABLET (FP) PO SCH (21:24)
[2016-02-08] MEDS: PRENATAL VITAMINS W/ FOLIC ACID TABLET (FP) PO SCH (09:58)
[2016-02-08] MEDS: METHYL SALICYLATE/MENTHOL OINT 30 GM TUBE TP SCH (09:58)
[2016-02-08] MEDS: DOXYCYCLINE HYCLATE 100 MG TABLET PO SCH ×2 (09:58→17:55)
[2016-02-08] MEDS: LIDOCAINE 5% TOPICAL PATCH TP SCH ×2 (09:58)
[2016-02-08] MEDS: IBUPROFEN 400 MG TABLET (FP) PO PRN (09:59)
[2016-02-08] MEDS: THIAMINE HCL 100 MG TABLET (FP) PO SCH (22:11)
[2016-02-08] MEDS: traZODone HCL 50 MG TABLET (FP) PO SCH (22:11)
[2016-02-08] MEDS: diphenhydrAMINE HCL 50 MG CAPSULE PO PRN (22:11)
[2016-02-08] MEDS: CYCLOBENZAPRINE HCL 10 MG TABLET (FP) PO PRN (22:13)
[2016-02-09] MEDS: DOXYCYCLINE HYCLATE 100 MG TABLET PO SCH ×2 (10:03→18:05)
[2016-02-09] MEDS: PRENATAL VITAMINS W/ FOLIC ACID TABLET (FP) PO SCH (10:03)
[2016-02-09] MEDS: LIDOCAINE 5% TOPICAL PATCH TP SCH ×2 (10:05)
[2016-02-09] MEDS: METHYL SALICYLATE/MENTHOL OINT 30 GM TUBE TP SCH (10:05)
[2016-02-09] MEDS: IBUPROFEN 400 MG TABLET (FP) PO PRN (10:06)
[2016-02-09] MEDS: THIAMINE HCL 100 MG TABLET (FP) PO SCH (22:00)
[2016-02-09] MEDS: CYCLOBENZAPRINE HCL 10 MG TABLET (FP) PO PRN (22:00)
[2016-02-09] MEDS: traZODone HCL 50 MG TABLET (FP) PO SCH (22:00)
[2016-02-10] MEDS: PRENATAL VITAMINS W/ FOLIC ACID TABLET (FP) PO SCH (09:56)
[2016-02-10] MEDS: DOXYCYCLINE HYCLATE 100 MG TABLET PO SCH ×2 (09:56→17:27)
[2016-02-10] MEDS: LIDOCAINE 5% TOPICAL PATCH TP SCH ×2 (09:56→09:57)
[2016-02-10] MEDS: METHYL SALICYLATE/MENTHOL OINT 30 GM TUBE TP SCH (09:57)
[2016-02-10] MEDS: IBUPROFEN 400 MG TABLET (FP) PO PRN (09:59)
[2016-02-10] MEDS: diphenhydrAMINE HCL 50 MG CAPSULE PO PRN (21:47)
[2016-02-10] MEDS: CYCLOBENZAPRINE HCL 10 MG TABLET (FP) PO PRN (21:47)
[2016-02-10] MEDS: THIAMINE HCL 100 MG TABLET (FP) PO SCH (21:47)
[2016-02-10] MEDS: traZODone HCL 50 MG TABLET (FP) PO SCH (21:47)
[2016-02-11] MEDS: IBUPROFEN 400 MG TABLET (FP) PO PRN ×2 (03:49→10:06)
[2016-02-11] MEDS: CYCLOBENZAPRINE HCL 10 MG TABLET (FP) PO PRN ×2 (03:49→21:44)
[2016-02-11] MEDS: PRENATAL VITAMINS W/ FOLIC ACID TABLET (FP) PO SCH (10:06)
[2016-02-11] MEDS: DOXYCYCLINE HYCLATE 100 MG TABLET PO SCH ×2 (10:06→17:28)
[2016-02-11] MEDS: LIDOCAINE 5% TOPICAL PATCH TP SCH ×2 (10:07)
[2016-02-11] MEDS: METHYL SALICYLATE/MENTHOL OINT 30 GM TUBE TP SCH (10:08)
[2016-02-11] MEDS: THIAMINE HCL 100 MG TABLET (FP) PO SCH (21:43)
[2016-02-11] MEDS: traZODone HCL 50 MG TABLET (FP) PO SCH (21:43)
[2016-02-11] MEDS: diphenhydrAMINE HCL 50 MG CAPSULE PO PRN (21:43)
[2016-02-12] MEDS: DOXYCYCLINE HYCLATE 100 MG TABLET PO SCH ×2 (10:02→17:23)
[2016-02-12] MEDS: IBUPROFEN 400 MG TABLET (FP) PO PRN ×2 (10:02→15:22)
[2016-02-12] MEDS: PRENATAL VITAMINS W/ FOLIC ACID TABLET (FP) PO SCH (10:02)
[2016-02-12] MEDS: LIDOCAINE 5% TOPICAL PATCH TP SCH ×2 (10:03)
[2016-02-12] MEDS: METHYL SALICYLATE/MENTHOL OINT 30 GM TUBE TP SCH (10:03)
[2016-02-12] MEDS: CYCLOBENZAPRINE HCL 10 MG TABLET (FP) PO PRN (15:24)
[2016-02-12] MEDS: diphenhydrAMINE HCL 50 MG CAPSULE PO PRN (22:02)
[2016-02-12] MEDS: THIAMINE HCL 100 MG TABLET (FP) PO SCH (22:02)
[2016-02-12] MEDS: traZODone HCL 50 MG TABLET (FP) PO SCH (22:02)
[2016-02-13] MEDS: CYCLOBENZAPRINE HCL 10 MG TABLET (FP) PO PRN ×3 (01:43→21:05)
[2016-02-13] MEDS: IBUPROFEN 400 MG TABLET (FP) PO PRN (06:42)
[2016-02-13] MEDS: LIDOCAINE 5% TOPICAL PATCH TP SCH ×2 (09:48)
[2016-02-13] MEDS: DOXYCYCLINE HYCLATE 100 MG TABLET PO SCH ×2 (09:48→17:34)
[2016-02-13] MEDS: PRENATAL VITAMINS W/ FOLIC ACID TABLET (FP) PO SCH (09:48)
[2016-02-13] MEDS: METHYL SALICYLATE/MENTHOL OINT 30 GM TUBE TP SCH (09:49)
[2016-02-13] MEDS: diphenhydrAMINE HCL 50 MG CAPSULE PO PRN (21:05)
[2016-02-13] MEDS: THIAMINE HCL 100 MG TABLET (FP) PO SCH (21:05)
[2016-02-13] MEDS: traZODone HCL 50 MG TABLET (FP) PO SCH (21:05)
[2016-02-14] MEDS: PRENATAL VITAMINS W/ FOLIC ACID TABLET (FP) PO SCH (10:17)
[2016-02-14] MEDS: IBUPROFEN 400 MG TABLET (FP) PO PRN (10:17)
[2016-02-14] MEDS: LIDOCAINE 5% TOPICAL PATCH TP SCH ×4 (10:19→15:44)
[2016-02-14] MEDS: METHYL SALICYLATE/MENTHOL OINT 30 GM TUBE TP SCH (10:20)
[2016-02-14] MEDS: CYCLOBENZAPRINE HCL 10 MG TABLET (FP) PO PRN (21:02)
[2016-02-14] MEDS: traZODone HCL 50 MG TABLET (FP) PO SCH (21:02)
[2016-02-14] MEDS: THIAMINE HCL 100 MG TABLET (FP) PO SCH (21:02)
[2016-02-14] MEDS: diphenhydrAMINE HCL 50 MG CAPSULE PO PRN (21:02)
[2016-02-15] MEDS: PRENATAL VITAMINS W/ FOLIC ACID TABLET (FP) PO SCH (09:56)
[2016-02-15] MEDS: IBUPROFEN 400 MG TABLET (FP) PO PRN ×2 (09:56→21:02)
[2016-02-15] MEDS: LIDOCAINE 5% TOPICAL PATCH TP SCH ×2 (09:57→09:58)
[2016-02-15] MEDS: METHYL SALICYLATE/MENTHOL OINT 30 GM TUBE TP SCH (09:58)
[2016-02-15] MEDS: THIAMINE HCL 100 MG TABLET (FP) PO SCH (21:02)
[2016-02-15] MEDS: diphenhydrAMINE HCL 50 MG CAPSULE PO PRN (21:02)
[2016-02-15] MEDS: CYCLOBENZAPRINE HCL 10 MG TABLET (FP) PO PRN (21:02)
[2016-02-15] MEDS: traZODone HCL 50 MG TABLET (FP) PO SCH (21:02)
[2016-02-16] MEDS: IBUPROFEN 400 MG TABLET (FP) PO PRN ×2 (06:09→13:27)
[2016-02-16] MEDS: CYCLOBENZAPRINE HCL 10 MG TABLET (FP) PO PRN ×2 (06:10→21:00)
[2016-02-16] MEDS: LIDOCAINE 5% TOPICAL PATCH TP SCH ×2 (09:52→09:53)
[2016-02-16] MEDS: PRENATAL VITAMINS W/ FOLIC ACID TABLET (FP) PO SCH (09:52)
[2016-02-16] MEDS: METHYL SALICYLATE/MENTHOL OINT 30 GM TUBE TP SCH (09:52)
[2016-02-16] MEDS: MAG HYDROX/AL HYDROX/SIMETH 30 ML UNIT-DOSE CUP PO PRN (18:37)
[2016-02-16] MEDS: diphenhydrAMINE HCL 50 MG CAPSULE PO PRN (20:59)
[2016-02-16] MEDS: THIAMINE HCL 100 MG TABLET (FP) PO SCH (20:59)
[2016-02-16] MEDS: traZODone HCL 50 MG TABLET (FP) PO SCH (20:59)
[2016-02-17] MEDS: CYCLOBENZAPRINE HCL 10 MG TABLET (FP) PO PRN ×2 (06:08→21:04)
[2016-02-17] MEDS: IBUPROFEN 400 MG TABLET (FP) PO PRN ×2 (06:08→14:51)
[2016-02-17] MEDS: LIDOCAINE 5% TOPICAL PATCH TP SCH ×2 (09:46)
[2016-02-17] MEDS: METHYL SALICYLATE/MENTHOL OINT 30 GM TUBE TP SCH (09:46)
[2016-02-17] MEDS: PRENATAL VITAMINS W/ FOLIC ACID TABLET (FP) PO SCH (09:47)
[2016-02-17] MEDS: diphenhydrAMINE HCL 50 MG CAPSULE PO PRN (21:04)
[2016-02-17] MEDS: traZODone HCL 50 MG TABLET (FP) PO SCH (21:04)
[2016-02-17] MEDS: THIAMINE HCL 100 MG TABLET (FP) PO SCH (21:04)
[2016-02-18] MEDS: METHYL SALICYLATE/MENTHOL OINT 30 GM TUBE TP SCH (09:54)
[2016-02-18] MEDS: PRENATAL VITAMINS W/ FOLIC ACID TABLET (FP) PO SCH (09:54)
[2016-02-18] MEDS: LIDOCAINE 5% TOPICAL PATCH TP SCH ×2 (09:55)
[2016-02-18] MEDS: IBUPROFEN 400 MG TABLET (FP) PO PRN ×2 (09:56→21:03)
[2016-02-18] MEDS: traZODone HCL 50 MG TABLET (FP) PO SCH (21:04)
[2016-02-18] MEDS: CYCLOBENZAPRINE HCL 10 MG TABLET (FP) PO PRN (21:04)
[2016-02-18] MEDS: THIAMINE HCL 100 MG TABLET (FP) PO SCH (21:04)
[2016-02-18] MEDS: diphenhydrAMINE HCL 50 MG CAPSULE PO PRN (21:04)
[2016-02-19] MEDS: LIDOCAINE 5% TOPICAL PATCH TP SCH ×2 (09:56→09:57)
[2016-02-19] MEDS: METHYL SALICYLATE/MENTHOL OINT 30 GM TUBE TP SCH (09:56)
[2016-02-19] MEDS: PRENATAL VITAMINS W/ FOLIC ACID TABLET (FP) PO SCH (09:56)
[2016-02-19] MEDS: IBUPROFEN 400 MG TABLET (FP) PO PRN ×2 (09:58→21:00)
[2016-02-19] MEDS: CYCLOBENZAPRINE HCL 10 MG TABLET (FP) PO PRN ×2 (09:59→21:00)
[2016-02-19] MEDS: diphenhydrAMINE HCL 50 MG CAPSULE PO PRN (20:59)
[2016-02-19] MEDS: traZODone HCL 50 MG TABLET (FP) PO SCH (20:59)
[2016-02-19] MEDS: THIAMINE HCL 100 MG TABLET (FP) PO SCH (20:59)
[2016-02-20] MEDS: PRENATAL VITAMINS W/ FOLIC ACID TABLET (FP) PO SCH (09:46)
[2016-02-20] MEDS: IBUPROFEN 400 MG TABLET (FP) PO PRN ×2 (09:47→21:05)
[2016-02-20] MEDS: METHYL SALICYLATE/MENTHOL OINT 30 GM TUBE TP SCH (10:15)
[2016-02-20] MEDS: CYCLOBENZAPRINE HCL 10 MG TABLET (FP) PO PRN ×2 (10:22→21:05)
[2016-02-20] MEDS: LIDOCAINE 5% TOPICAL PATCH TP SCH ×2 (11:00)
[2016-02-20] MEDS: THIAMINE HCL 100 MG TABLET (FP) PO SCH (21:03)
[2016-02-20] MEDS: traZODone HCL 50 MG TABLET (FP) PO SCH (21:03)
[2016-02-20] MEDS: diphenhydrAMINE HCL 50 MG CAPSULE PO PRN (21:03)
[2016-02-21] MEDS: PRENATAL VITAMINS W/ FOLIC ACID TABLET (FP) PO SCH (09:40)
[2016-02-21] MEDS: METHYL SALICYLATE/MENTHOL OINT 30 GM TUBE TP SCH (09:40)
[2016-02-21] MEDS: LIDOCAINE 5% TOPICAL PATCH TP SCH ×2 (09:41)
[2016-02-21] MEDS: IBUPROFEN 400 MG TABLET (FP) PO PRN ×2 (09:42→21:01)
[2016-02-21] MEDS: CYCLOBENZAPRINE HCL 10 MG TABLET (FP) PO PRN ×2 (09:42→21:01)
[2016-02-21] MEDS: MAG HYDROX/AL HYDROX/SIMETH 30 ML UNIT-DOSE CUP PO PRN (09:59)
--- NOTE | 2016-02-21 14:28 | PN ---
Psychiatric Progress Note Vital Signs: Vital Signs Period Temp Pulse Resp BP Sys/Lara Pulse Ox Last 24 Hr 97.5 F 76 16-18 139/93 Date of Session: 02/21/16 Chief Complaint:: Psychiatrist Discharge Note HPI: Patient addressing Alcohol Dependence comorbid with MDD, recurrent episode , moderate ROS: Multiple sites of spinal cord injury Current Medications: Active Medications Generic Name Dose Route Start Last Admin Trade Name Freq PRN Reason Stop Dose Admin Acetaminophen 650 mg 01/26/16 17:48 Tylenol - PO Q4H PRN FEVER OR PAIN Al Hydroxide/Mg Hydroxide 30 ml 01/26/16 17:48 02/21/16 09:59 Mylanta Oral Suspension - PO 30 ml Q6H PRN Administration DYSPEPSIA Bupropion HCl 300 mg 01/27/16 10:15 02/21/16 09:40 Wellbutrin Xl - PO 300 mg DAILY HAROLDO Administration Clonidine 0.1 mg 01/26/16 17:56 Catapres - PO Q8H PRN HYPERTENSION Cyclobenzaprine HCl 10 mg 01/26/16 17:56 02/21/16 09:42 Flexeril - PO 10 mg TID PRN Administration MUSCLE SPASMS Diphenhydramine HCl 50 mg 01/26/16 17:48 02/20/16 21:03 Benadryl - PO 50 mg HSMR1 PRN Administration INSOMNIA Eucalyptus/Menthol/Phenol/Sorbitol 1 each 01/26/16 17:48 Cepastat Lozenge - MM Q4H PRN SORE THROAT Guaifenesin 10 ml 01/26/16 17:48 Robitussin Dm - PO Q6H PRN COUGH Hydroxyzine Pamoate 50 mg 01/26/16 17:54 01/30/16 05:49 Vistaril - PO 50 mg Q4H PRN Administration AGITATION Ibuprofen 800 mg 02/01/16 13:56 02/21/16 09:42 Motrin - PO 800 mg Q6H PRN Administration SEVERE PAIN Lidocaine 1 patch 02/14/16 12:51 02/21/16 09:41 Lidoderm Patch - TP 1 patch DAILY HAROLDO Administration Lidocaine 1 patch 02/14/16 13:40 02/21/16 09:41 Lidoderm Patch - TP 1 patch DAILY HAROLDO Administration Loperamide HCl 4 mg 01/26/16 17:48 Imodium - PO Q6H PRN DIARRHEA Magnesium Citrate 300 ml 01/26/16 17:48 02/01/16 21:16 Citroma - PO 300 ml Q48H PRN Administration CONSTIPATION Magnesium Hydroxide 30 ml 01/26/16 17:48 01/29/16 14:01 Milk Of Magnesia - PO 30 ml DAILY PRN Administration CONSTIPATION Methyl Salicylate 1 applic 02/02/16 22:00 02/21/16 09:40 Ezekiel-Davies - TP 1 applic DAILY HAROLDO Administration Multivit/Folic Acid/Iron 1 tab 01/27/16 10:00 02/21/16 09:40 Vitamins (Sjr) - PO 1 tab DAILY HAROLDO Administration Pseudoephedrine/Triprolidine 1 combo 01/26/16 17:48 Actifed - PO TID PRN NASAL CONGESTION Thiamine HCl 100 mg 01/26/16 22:00 02/20/16 21:03 Vitamin B1 - PO 100 mg HS HAROLDO Administration Trazodone HCl 50 mg 01/27/16 22:00 02/20/16 21:03 Desyrel - PO 50 mg HS HAROLDO Administration Current Side Effect: No Lab tests ordered: No Lab tests reviewed: Yes Provider note:: Patient will complete this program on 02/22/16. He has met his treatment goals and will continue to address his issues at outpatient treatment at [facility] at [address] [place] [address]. He verbalized undrestanding of the negative consequences of his addiction and from his participation in this program, he has learned that he cannot continue to do things his way and expect different result. 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 He responded well to Wellbutrin XL 300 mg po daily and Trazadone 50 mg po HS. Scripts for 30 days supply of these medications will be electronically transmitted to [facility] at [address] [place] [address]. He is stable for discharge on 02/22/16 Total face to face time:: 35 Mental Status Exam - Mental Status Exam Alert and Oriented to: Time, Place, Person Cognitive Function: Fair Patient Appearance: Well Groomed Mood: Hopeful, Euthymic Affect: Appropriate Patient Behavior: Cooperative Speech Pattern: Clear Voice Loudness: Normal Thought Process: Intact Thought Disorder: Not Present Hallucinations: Denies Suicidal Ideation: Denies Homicidal Ideation: Denies Insight/Judgement: Fair Sleep: Fair Appetite: Good Muscle strength/Tone: Normal Gait/Station: Normal Psychiatric Treatment Plan - Problem List (1) Alcohol dependence with uncomplicated withdrawal Current Visit: Yes (2) MDD (major depressive disorder), recurrent episode, moderate Current Visit: Yes (3) GERD (gastroesophageal reflux disease) Current Visit: Yes (4) Multiple sites of spinal cord injury Current Visit: Yes Initial treatment plan: Patient will be discharged tomorrow and referred to [facility] for outpatient treatment
[2016-02-21] MEDS: diphenhydrAMINE HCL 50 MG CAPSULE PO PRN (21:01)
[2016-02-21] MEDS: THIAMINE HCL 100 MG TABLET (FP) PO SCH (21:01)
[2016-02-21] MEDS: traZODone HCL 50 MG TABLET (FP) PO SCH (21:01)
[2016-02-22 06:41] VITALS: BP 149/79; PULSE 92; TEMP 97.7
== END 2016-02-22 08:40 | disposition home or self-care (01) | DRG 895 ==
LOC: YASAS 15:30 → Y3N 18:21 → Y3W 01-30 17:33
PROVIDERS: ADMIT Psychiatry & Neurology Psychiatry; ATTEND Internal Medicine
PROC: HZ2ZZZZ Detoxification Services for Substance Abuse Treatment (ICD-10-PCS; principal; 2016-01-26)
PROC: HZ42ZZZ Group Counseling for Substance Abuse Treatment, Cognitive-Behavioral (ICD-10-PCS; 2016-01-30)
DX: F10.230 Alcohol dependence with withdrawal, uncomplicated (principal); F33.1 Major depressive disorder, recurrent, moderate; F34.1 Dysthymic disorder; R00.0 Tachycardia, unspecified; K21.9 Gastro-esophageal reflux disease without esophagitis; Z87.891 Personal history of nicotine dependence
CPT/HCPCS: 36415; 80053; 81003; 85027; 86593; 86803; 93005; 93010

== ENCOUNTER 2020-05-20 16:22 | Inpatient (IN) | payer OTHER ==
[2020-05-20 11:29] VITALS: BMI 32.2
[2020-05-20] MEDS ORDERED: BISMUTH SUBSALICYLATE 524 MG/30 ML UD PO PRN (17:25)
[2020-05-20] MEDS ORDERED: MAGNESIUM CITRATE 300 ML BOTTLE PO PRN (17:25)
[2020-05-20] MEDS ORDERED: MAG HYDROX/AL HYDROX/SIMETH 30 ML UNIT-DOSE CUP PO PRN (17:25)
[2020-05-20] MEDS ORDERED: ONDANSETRON *ODT* 4 MG TABLET SL PRN (17:25)
[2020-05-20] MEDS ORDERED: MENTHOL/PHENOL 1 EACH UD MM PRN (17:25)
[2020-05-20] MEDS ORDERED: MAGNESIUM HYDROX 2400MG/30ML ORAL SUSPENSION 30 ML CUP PO PRN (17:25)
[2020-05-20] MEDS ORDERED: ACETAMINOPHEN 325 MG TABLET (FP) PO PRN ×2 (17:25)
[2020-05-20] MEDS ORDERED: chlordiazePOXIDE HCL 25 MG CAPSULE PO PRN (17:25)
[2020-05-20] MEDS ORDERED: ALBUTEROL SO4 HFA INHALER IH PRN (17:52)
[2020-05-20] MEDS: hydrOXYzine PAMOATE 25 MG CAPSULE (FP) PO PRN (18:50)
[2020-05-20] MEDS: LIDOCAINE 5% TOPICAL PATCH TP SCH (19:44)
[2020-05-20] MEDS: chlordiazePOXIDE HCL 25 MG CAPSULE PO SCH (23:07)
[2020-05-20] MEDS: IBUPROFEN 400 MG TABLET (FP) PO PRN (23:08)
[2020-05-20] MEDS: THIAMINE HCL 100 MG TABLET (FP) PO SCH (23:08)
[2020-05-20] MEDS: LIDOCAINE PATCH REMOVAL MC SCH (23:08)
[2020-05-20] MEDS: MELATONIN 5 MG TABLETS PO SCH (23:09)
[2020-05-21] MEDS: hydrOXYzine PAMOATE 25 MG CAPSULE (FP) PO PRN ×3 (05:10→22:45)
[2020-05-21] MEDS: IBUPROFEN 400 MG TABLET (FP) PO PRN (05:11)
[2020-05-21] MEDS: METHOCARBAMOL 500 MG TABLET PO PRN (05:11)
[2020-05-21] MEDS: chlordiazePOXIDE HCL 25 MG CAPSULE PO SCH ×4 (05:13→22:44)
[2020-05-21] MEDS: PRENATAL VITAMINS W/ FOLIC ACID TABLET (FP) PO SCH (10:16)
[2020-05-21] MEDS: LIDOCAINE 5% TOPICAL PATCH TP SCH (10:18)
[2020-05-21 11:40] LABS: HEMATOCRIT 47.7 % (35.4-49); MCH 32.4 pg (25.7-33.7); MCHC 33.6 g/dl (32.0-35.9); MEAN CELL VOLUME 96.6 fl (80-96); PLATELET COUNT 299 K/MM3 (134-434); RBC 4.94 M/mm3 (4.00-5.60); RDW 17.7 % (11.9-15.9); WHITE BLOOD COUNT 7.4 K/mm3 (4.0-10.0)
[2020-05-21 11:43] LABS: CALCIUM 10.1 mg/dL (8.5-10.1); POTASSIUM 4.4 mmol/L (3.5-5.1)
[2020-05-21 11:44] LABS: ALBUMIN 4.1 g/dl (3.4-5.0); BLOOD UREA NITROGEN 19.6 mg/dL (7-18)
[2020-05-21 11:47] LABS: CREATININE 1.4 mg/dL (0.55-1.3)
[2020-05-21 11:48] LABS: BILIRUBIN,TOTAL 0.9 mg/dL (0.2-1); TOT PROT 8.3 g/dl (6.4-8.2)
[2020-05-21] MEDS: LIDOCAINE PATCH REMOVAL MC SCH (22:44)
[2020-05-21] MEDS: THIAMINE HCL 100 MG TABLET (FP) PO SCH (22:45)
[2020-05-21] MEDS: MELATONIN 5 MG TABLETS PO SCH (22:45)
[2020-05-22] MEDS: chlordiazePOXIDE HCL 25 MG CAPSULE PO SCH ×4 (05:09→22:06)
[2020-05-22] MEDS: PRENATAL VITAMINS W/ FOLIC ACID TABLET (FP) PO SCH (10:19)
[2020-05-22] MEDS: LIDOCAINE 5% TOPICAL PATCH TP SCH (10:19)
[2020-05-22] MEDS: hydrOXYzine PAMOATE 25 MG CAPSULE (FP) PO PRN (17:06)
[2020-05-22] MEDS: LIDOCAINE PATCH REMOVAL MC SCH (22:06)
[2020-05-22] MEDS: THIAMINE HCL 100 MG TABLET (FP) PO SCH (22:06)
[2020-05-22] MEDS: MELATONIN 5 MG TABLETS PO SCH (22:07)
[2020-05-23] MEDS ORDERED: chlordiazePOXIDE HCL 10 MG CAPSULE PO PRN
[2020-05-23] MEDS: chlordiazePOXIDE HCL 10 MG CAPSULE PO SCH ×4 (04:04→22:34)
[2020-05-23] MEDS: hydrOXYzine PAMOATE 25 MG CAPSULE (FP) PO PRN ×2 (04:04→17:06)
[2020-05-23 07:11] LABS: SARS-CoV-2 NAA Not Detected (Not Detected)
[2020-05-23] MEDS: PRENATAL VITAMINS W/ FOLIC ACID TABLET (FP) PO SCH (10:19)
[2020-05-23] MEDS: TAMSULOSIN HCL 0.4 MG CAP PO SCH (10:21)
[2020-05-23] MEDS: LIDOCAINE 5% TOPICAL PATCH TP SCH (13:50)
[2020-05-23] MEDS: THIAMINE HCL 100 MG TABLET (FP) PO SCH (22:35)
[2020-05-23] MEDS: MELATONIN 5 MG TABLETS PO SCH (22:35)
[2020-05-23] MEDS: LIDOCAINE PATCH REMOVAL MC SCH (22:35)
[2020-05-24] MEDS: chlordiazePOXIDE HCL 10 MG CAPSULE PO SCH ×2 (05:13→17:11)
[2020-05-24] MEDS: PRENATAL VITAMINS W/ FOLIC ACID TABLET (FP) PO SCH (10:12)
[2020-05-24] MEDS: TAMSULOSIN HCL 0.4 MG CAP PO SCH (10:12)
[2020-05-24] MEDS: LIDOCAINE 5% TOPICAL PATCH TP SCH (10:13)
[2020-05-24] MEDS: METHOCARBAMOL 500 MG TABLET PO PRN (10:14)
[2020-05-24] MEDS: THIAMINE HCL 100 MG TABLET (FP) PO SCH (22:17)
[2020-05-24] MEDS: MELATONIN 5 MG TABLETS PO SCH (22:17)
[2020-05-24] MEDS: LIDOCAINE PATCH REMOVAL MC SCH (22:17)
[2020-05-24] MEDS: hydrOXYzine PAMOATE 25 MG CAPSULE (FP) PO PRN (22:17)
[2020-05-25] MEDS ORDERED: chlordiazePOXIDE HCL 10 MG CAPSULE PO ONE (05:00)
[2020-05-25 07:00] VITALS: TEMP 96.9
[2020-05-25] MEDS: TAMSULOSIN HCL 0.4 MG CAP PO SCH (09:03)
[2020-05-25] MEDS: PRENATAL VITAMINS W/ FOLIC ACID TABLET (FP) PO SCH (09:03)
[2020-05-25] MEDS: LIDOCAINE 5% TOPICAL PATCH TP SCH (09:05)
[2020-05-25 09:32] VITALS: BP 136/90; PULSE 110
== END 2020-05-25 09:09 | disposition home or self-care (01) | DRG 897 ==
LOC: YASAS 16:22 → Y6N 17:35
PROVIDERS: ADMIT Allergy & Immunology; ATTEND Allergy & Immunology
PROC: HZ2ZZZZ Detoxification Services for Substance Abuse Treatment (ICD-10-PCS; principal; 2020-05-20)
DX: F10.230 Alcohol dependence with withdrawal, uncomplicated (principal); F33.1 Major depressive disorder, recurrent, moderate; F19.24 Other psychoactive substance dependence with psychoactive substance-induced mood disorder; F34.1 Dysthymic disorder; F98.8 Other specified behavioral and emotional disorders with onset usually occurring in childhood and adolescence; I10 Essential (primary) hypertension; J44.9 Chronic obstructive pulmonary disease, unspecified; K21.9 Gastro-esophageal reflux disease without esophagitis; R74.01 Elevation of levels of liver transaminase levels; Z85.46 Personal history of malignant neoplasm of prostate; Z86.19 Personal history of other infectious and parasitic diseases; Z98.890 Other specified postprocedural states; Z88.8 Allergy status to other drugs, medicaments and biological substances
CPT/HCPCS: 36415; 71045-TC-FY; 80053; 80307; 81003; 83735; 84100; 84484; 85025; 85027; 86780; 93005; 93010; C9803; J0735; U0003; U0005

== ENCOUNTER 2020-10-05 11:59 | Inpatient (IN) | payer OTHER ==
[2020-10-05] MEDS ORDERED: MAGNESIUM HYDROX 2400MG/30ML ORAL SUSPENSION 30 ML CUP PO PRN (13:28)
[2020-10-05] MEDS ORDERED: ONDANSETRON *ODT* 4 MG TABLET SL PRN (13:28)
[2020-10-05] MEDS ORDERED: ACETAMINOPHEN 325 MG TABLET (FP) PO PRN ×2 (13:28)
[2020-10-05] MEDS ORDERED: BISMUTH SUBSALICYLATE 262 MG/15 ML BTL PO PRN (13:28)
[2020-10-05] MEDS ORDERED: MAGNESIUM CITRATE 300 ML BOTTLE PO PRN (13:28)
[2020-10-05] MEDS ORDERED: MENTHOL/PHENOL 1 EACH UD MM PRN (13:28)
[2020-10-05 14:00] VITALS: BMI 30.4
[2020-10-05] MEDS: hydrOXYzine PAMOATE 25 MG CAPSULE (FP) PO SCH ×3 (14:26→22:40)
[2020-10-05] MEDS: PRENATAL VITAMINS W/ FOLIC ACID TABLET (FP) PO SCH (14:29)
[2020-10-05] MEDS: diazePAM 5 MG TABLET PO PRN ×2 (17:53→22:39)
[2020-10-05] MEDS: THIAMINE HCL 100 MG TABLET (FP) PO SCH (22:40)
[2020-10-05] MEDS: MELATONIN 5 MG TABLETS PO SCH (22:41)
[2020-10-06] MEDS: hydrOXYzine PAMOATE 25 MG CAPSULE (FP) PO SCH ×5 (07:26→22:24)
[2020-10-06] MEDS: PRENATAL VITAMINS W/ FOLIC ACID TABLET (FP) PO SCH (10:40)
[2020-10-06] MEDS: TAMSULOSIN HCL 0.4 MG CAP PO SCH (10:40)
[2020-10-06] MEDS: HYDROCHLOROTHIAZIDE 12.5 MG CAPSULE (FP) PO SCH (10:40)
[2020-10-06] MEDS: amLODIPine BESYLATE 5 MG TABLET (FP) PO SCH (10:40)
[2020-10-06] MEDS: IBUPROFEN 400 MG TABLET (FP) PO PRN (17:29)
[2020-10-06] MEDS: MAG HYDROX/AL HYDROX/SIMETH 30 ML UNIT-DOSE CUP PO PRN (21:27)
[2020-10-06] MEDS: THIAMINE HCL 100 MG TABLET (FP) PO SCH (22:24)
[2020-10-06] MEDS: MELATONIN 5 MG TABLETS PO SCH (22:24)
[2020-10-06] MEDS: diazePAM 5 MG TABLET PO PRN (22:27)
[2020-10-07] MEDS: diazePAM 5 MG TABLET PO SCH ×3 (05:37→22:39)
[2020-10-07] MEDS: hydrOXYzine PAMOATE 25 MG CAPSULE (FP) PO SCH ×2 (05:37→10:19)
[2020-10-07] MEDS: TAMSULOSIN HCL 0.4 MG CAP PO SCH (10:19)
[2020-10-07] MEDS: HYDROCHLOROTHIAZIDE 12.5 MG CAPSULE (FP) PO SCH (10:19)
[2020-10-07] MEDS: amLODIPine BESYLATE 5 MG TABLET (FP) PO SCH (10:19)
[2020-10-07] MEDS: PRENATAL VITAMINS W/ FOLIC ACID TABLET (FP) PO SCH (10:20)
[2020-10-07] MEDS: METHOCARBAMOL 500 MG TABLET PO PRN ×2 (10:21→22:38)
[2020-10-07] MEDS ORDERED: hydrOXYzine PAMOATE 25 MG CAPSULE (FP) PO PRN (11:22)
[2020-10-07] MEDS: diazePAM 5 MG TABLET PO PRN (15:18)
[2020-10-07] MEDS: THIAMINE HCL 100 MG TABLET (FP) PO SCH (22:38)
[2020-10-07] MEDS: MELATONIN 5 MG TABLETS PO SCH (22:38)
[2020-10-08] MEDS: diazePAM 5 MG TABLET PO SCH ×2 (06:03→18:27)
[2020-10-08] MEDS: METHOCARBAMOL 500 MG TABLET PO PRN ×2 (06:04→22:45)
[2020-10-08] MEDS: amLODIPine BESYLATE 5 MG TABLET (FP) PO SCH (10:48)
[2020-10-08] MEDS: PRENATAL VITAMINS W/ FOLIC ACID TABLET (FP) PO SCH (10:48)
[2020-10-08] MEDS: TAMSULOSIN HCL 0.4 MG CAP PO SCH (10:48)
[2020-10-08] MEDS: HYDROCHLOROTHIAZIDE 12.5 MG CAPSULE (FP) PO SCH (10:48)
[2020-10-08] MEDS: diazePAM 5 MG TABLET PO PRN (10:49)
[2020-10-08] MEDS: IBUPROFEN 400 MG TABLET (FP) PO PRN (10:50)
[2020-10-08] MEDS: MAG HYDROX/AL HYDROX/SIMETH 30 ML UNIT-DOSE CUP PO PRN (15:20)
[2020-10-08] MEDS: MELATONIN 5 MG TABLETS PO SCH (22:42)
[2020-10-08] MEDS: THIAMINE HCL 100 MG TABLET (FP) PO SCH (22:42)
[2020-10-09] MEDS ORDERED: diazePAM 5 MG TABLET PO ONE (06:00)
[2020-10-09 09:53] VITALS: BP 143/88; PULSE 95; TEMP 96.9
== END 2020-10-09 10:55 | disposition home or self-care (01) | DRG 897 ==
LOC: YASAS 11:59 → Y3N 13:25
PROVIDERS: ADMIT Allergy & Immunology; ATTEND Allergy & Immunology
PROC: HZ2ZZZZ Detoxification Services for Substance Abuse Treatment (ICD-10-PCS; principal; 2020-10-05)
DX: F10.230 Alcohol dependence with withdrawal, uncomplicated (principal); F33.1 Major depressive disorder, recurrent, moderate; F98.8 Other specified behavioral and emotional disorders with onset usually occurring in childhood and adolescence; I10 Essential (primary) hypertension; J44.9 Chronic obstructive pulmonary disease, unspecified; K21.9 Gastro-esophageal reflux disease without esophagitis; Z96.612 Presence of left artificial shoulder joint; Z85.46 Personal history of malignant neoplasm of prostate
CPT/HCPCS: 36415; 71045-TC-FY; 80053; 81003; 83036; 83735; 84100; 85025; 85027; 86780; 93005; 93010; C9803; G0378; U0003; U0005

== ENCOUNTER 2021-03-26 08:49 | Inpatient (IN) | payer OTHER, BC ==
[2021-03-25 14:59] VITALS: BMI 29.0
[2021-03-25] MEDS: METHOCARBAMOL 500 MG TABLET PO PRN (21:29)
[2021-03-25] MEDS: diazePAM 5 MG TABLET PO PRN (21:30)
[2021-03-26] MEDS: IBUPROFEN 400 MG TABLET (FP) PO PRN (02:41)
[2021-03-26] MEDS: diazePAM 5 MG TABLET PO PRN ×6 (02:43→22:59)
[2021-03-26] MEDS: METHOCARBAMOL 500 MG TABLET PO PRN ×2 (07:20→15:00)
[~2021-03-26 08:49] MED LIST: ACETAMINOPHEN 325 MG TABLET (FP) PO PRN; BISMUTH SUBSALICYLATE 524 MG/30 ML PO PRN; DICYCLOMINE HCL 10 MG CAPSULE PO PRN; FOLIC ACID 1 MG TABLET (FP) PO SCH; IBUPROFEN 400 MG TABLET (FP) PO ONE; MAG HYDROX/AL HYDROX/SIMETH 30 ML UNIT-DOSE CUP PO PRN; MAGNESIUM CITRATE 300 ML BOTTLE PO PRN; MAGNESIUM HYDROX 2400MG/30ML ORAL SUSPENSION 30 ML CUP PO PRN; MENTHOL/PHENOL 1 EACH UD MM PRN; METHOCARBAMOL 500 MG TABLET ONE; ONDANSETRON *ODT* 4 MG TABLET SL PRN; diazePAM 5 MG TABLET ONE
[2021-03-26] MEDS ORDERED: TAMSULOSIN HCL 0.4 MG CAP PO SCH (10:00)
[2021-03-26] MEDS: LACTOBACILLUS ACIDOPHILUS 1 TABLET PO SCH (11:29)
[2021-03-26] MEDS: ASPIRIN 325 MG TABLET PO SCH (11:29)
[2021-03-26] MEDS: TAMSULOSIN HCL 0.4 MG CAP PO SCH (11:29)
[2021-03-26] MEDS: amLODIPine BESYLATE 5 MG TABLET (FP) PO SCH ×2 (11:30→17:00)
[2021-03-26] MEDS: HYDROCHLOROTHIAZIDE 12.5 MG CAPSULE (FP) PO SCH (11:30)
[2021-03-26] MEDS: PANTOPRAZOLE 40 MG TABLET PO SCH (11:30)
[2021-03-26 12:08] LABS: HEMATOCRIT 40.3 % (35.4-49); HEMOGLOBIN 13.2 GM/dL (11.7-16.9); MCH 29.6 pg (25.7-33.7); MCHC 32.7 g/dl (32.0-35.9); MEAN CELL VOLUME 90.6 fl (80-96); MEAN PLT VOLUME 8.8 fl (7.5-11.1); PLATELET COUNT 177 10^3/uL (134-434); RBC 4.45 M/mm3 (4.00-5.60); RDW 15.5 % (11.9-15.9); WHITE BLOOD COUNT 7.5 K/mm3 (4.0-10.0)
[2021-03-26 12:11] LABS: CALCIUM 8.6 mg/dL (8.5-10.1)
[2021-03-26 12:13] LABS: ALBUMIN 3.3 g/dl (3.4-5.0); BLOOD UREA NITROGEN 16.1 mg/dL (7-18)
[2021-03-26 12:15] LABS: CREATININE 1.1 mg/dL (0.55-1.3)
[2021-03-26 12:17] LABS: TOT PROT 6.5 g/dl (6.4-8.2)
[2021-03-26 12:24] LABS: BILIRUBIN,TOTAL 0.4 mg/dL (0.2-1)
[2021-03-26] MEDS: CALCIUM 500MG/VIT-D 200 UNITS COMBO TABLET (FP) PO SCH (15:00)
[2021-03-26] MEDS: ZINC SULFATE 220 MG CAPSULE (FP) PO SCH (18:27)
[2021-03-26] MEDS: PRENATAL VITAMINS W/ FOLIC ACID TABLET (FP) PO SCH (18:28)
[2021-03-26] MEDS: CHOLECALCIFEROL (VIT D3) 1,000 UNIT (25 MCG) TABLET PO SCH (18:28)
[2021-03-26] MEDS: hydrOXYzine PAMOATE 25 MG CAPSULE (FP) PO PRN ×2 (19:04→22:59)
[2021-03-26] MEDS: THIAMINE HCL 100 MG TABLET (FP) PO SCH ×2 (22:56→22:59)
[2021-03-26] MEDS: MELATONIN 5 MG TABLETS PO PRN (22:59)
[2021-03-27] MEDS: IBUPROFEN 400 MG TABLET (FP) PO PRN ×2 (05:56→22:31)
[2021-03-27] MEDS: TAMSULOSIN HCL 0.4 MG CAP PO SCH (10:52)
[2021-03-27] MEDS: PRENATAL VITAMINS W/ FOLIC ACID TABLET (FP) PO SCH (10:52)
[2021-03-27] MEDS: amLODIPine BESYLATE 5 MG TABLET (FP) PO SCH (10:52)
[2021-03-27] MEDS: CALCIUM 500MG/VIT-D 200 UNITS COMBO TABLET (FP) PO SCH (10:52)
[2021-03-27] MEDS: PANTOPRAZOLE 40 MG TABLET PO SCH (10:52)
[2021-03-27] MEDS: METHOCARBAMOL 500 MG TABLET PO PRN ×2 (10:53→18:05)
[2021-03-27] MEDS: HYDROCHLOROTHIAZIDE 12.5 MG CAPSULE (FP) PO SCH (11:11)
[2021-03-27] MEDS: LACTOBACILLUS ACIDOPHILUS 1 TABLET PO SCH (11:11)
[2021-03-27] MEDS: CHOLECALCIFEROL (VIT D3) 1,000 UNIT (25 MCG) TABLET PO SCH (14:53)
[2021-03-27] MEDS: ZINC SULFATE 220 MG CAPSULE (FP) PO SCH (14:53)
[2021-03-27] MEDS: ASPIRIN 325 MG TABLET PO SCH (14:53)
[2021-03-27] MEDS: hydrOXYzine PAMOATE 25 MG CAPSULE (FP) PO PRN ×2 (18:05→22:29)
[2021-03-27] MEDS: THIAMINE HCL 100 MG TABLET (FP) PO SCH (22:29)
[2021-03-27] MEDS: MELATONIN 5 MG TABLETS PO PRN (22:30)
[2021-03-28] MEDS: amLODIPine BESYLATE 5 MG TABLET (FP) PO SCH (10:09)
[2021-03-28] MEDS: PANTOPRAZOLE 40 MG TABLET PO SCH (10:09)
[2021-03-28] MEDS: METHOCARBAMOL 500 MG TABLET PO PRN (10:09)
[2021-03-28] MEDS: hydrOXYzine PAMOATE 25 MG CAPSULE (FP) PO PRN (10:09)
[2021-03-28] MEDS: TAMSULOSIN HCL 0.4 MG CAP PO SCH (10:09)
[2021-03-28] MEDS: CALCIUM 500MG/VIT-D 200 UNITS COMBO TABLET (FP) PO SCH (10:09)
[2021-03-28] MEDS: HYDROCHLOROTHIAZIDE 12.5 MG CAPSULE (FP) PO SCH (10:10)
[2021-03-28] MEDS: CHOLECALCIFEROL (VIT D3) 1,000 UNIT (25 MCG) TABLET PO SCH (10:10)
[2021-03-28] MEDS: LACTOBACILLUS ACIDOPHILUS 1 TABLET PO SCH (10:11)
[2021-03-28] MEDS: PRENATAL VITAMINS W/ FOLIC ACID TABLET (FP) PO SCH (10:11)
[2021-03-28] MEDS: ASPIRIN 325 MG TABLET PO SCH (10:11)
[2021-03-28] MEDS: ZINC SULFATE 220 MG CAPSULE (FP) PO SCH (10:11)
[2021-03-28] MEDS: THIAMINE HCL 100 MG TABLET (FP) PO SCH (21:15)
[2021-03-28] MEDS: MELATONIN 5 MG TABLETS PO PRN (21:15)
[2021-03-28] MEDS: IBUPROFEN 400 MG TABLET (FP) PO PRN (21:16)
[2021-03-29] MEDS: TAMSULOSIN HCL 0.4 MG CAP PO SCH (07:36)
[2021-03-29] MEDS: HYDROCHLOROTHIAZIDE 12.5 MG CAPSULE (FP) PO SCH (10:14)
[2021-03-29] MEDS: PRENATAL VITAMINS W/ FOLIC ACID TABLET (FP) PO SCH (10:14)
[2021-03-29] MEDS: CHOLECALCIFEROL (VIT D3) 1,000 UNIT (25 MCG) TABLET PO SCH (10:15)
[2021-03-29] MEDS: PANTOPRAZOLE 40 MG TABLET PO SCH (10:15)
[2021-03-29] MEDS: amLODIPine BESYLATE 5 MG TABLET (FP) PO SCH (10:15)
[2021-03-29] MEDS: CALCIUM 500MG/VIT-D 200 UNITS COMBO TABLET (FP) PO SCH (13:24)
[2021-03-29] MEDS: ZINC SULFATE 220 MG CAPSULE (FP) PO SCH (13:25)
[2021-03-29] MEDS: LACTOBACILLUS ACIDOPHILUS 1 TABLET PO SCH (13:25)
[2021-03-29] MEDS: ASPIRIN 325 MG TABLET PO SCH (13:26)
[2021-03-29] MEDS: IBUPROFEN 400 MG TABLET (FP) PO PRN ×2 (13:27→21:22)
[2021-03-29] MEDS: MELATONIN 5 MG TABLETS PO PRN (21:22)
[2021-03-29] MEDS: THIAMINE HCL 100 MG TABLET (FP) PO SCH (21:22)
[2021-03-30] MEDS: amLODIPine BESYLATE 5 MG TABLET (FP) PO SCH (11:01)
[2021-03-30] MEDS: HYDROCHLOROTHIAZIDE 12.5 MG CAPSULE (FP) PO SCH (11:01)
[2021-03-30] MEDS: TAMSULOSIN HCL 0.4 MG CAP PO SCH (11:01)
[2021-03-30] MEDS: CHOLECALCIFEROL (VIT D3) 1,000 UNIT (25 MCG) TABLET PO SCH (11:02)
[2021-03-30] MEDS: ASPIRIN 325 MG TABLET PO SCH (11:02)
[2021-03-30] MEDS: LACTOBACILLUS ACIDOPHILUS 1 TABLET PO SCH (11:03)
[2021-03-30] MEDS: ZINC SULFATE 220 MG CAPSULE (FP) PO SCH (11:04)
[2021-03-30] MEDS: PRENATAL VITAMINS W/ FOLIC ACID TABLET (FP) PO SCH (11:04)
[2021-03-30] MEDS: CALCIUM 500MG/VIT-D 200 UNITS COMBO TABLET (FP) PO SCH (11:05)
[2021-03-30] MEDS: PANTOPRAZOLE 40 MG TABLET PO SCH (11:08)
[2021-03-30] MEDS: IBUPROFEN 400 MG TABLET (FP) PO PRN (13:10)
[2021-03-30] MEDS: THIAMINE HCL 100 MG TABLET (FP) PO SCH (21:12)
[2021-03-30] MEDS: MELATONIN 5 MG TABLETS PO PRN (21:12)
[2021-03-31] MEDS: TAMSULOSIN HCL 0.4 MG CAP PO SCH (08:23)
[2021-03-31] MEDS: CHOLECALCIFEROL (VIT D3) 1,000 UNIT (25 MCG) TABLET PO SCH (09:59)
[2021-03-31] MEDS: LACTOBACILLUS ACIDOPHILUS 1 TABLET PO SCH (09:59)
[2021-03-31] MEDS: amLODIPine BESYLATE 5 MG TABLET (FP) PO SCH (09:59)
[2021-03-31] MEDS: PANTOPRAZOLE 40 MG TABLET PO SCH (09:59)
[2021-03-31] MEDS: HYDROCHLOROTHIAZIDE 12.5 MG CAPSULE (FP) PO SCH (09:59)
[2021-03-31] MEDS: CALCIUM 500MG/VIT-D 200 UNITS COMBO TABLET (FP) PO SCH (10:00)
[2021-03-31] MEDS: ZINC SULFATE 220 MG CAPSULE (FP) PO SCH (10:01)
[2021-03-31] MEDS: ASPIRIN 325 MG TABLET PO SCH (10:01)
[2021-03-31] MEDS: PRENATAL VITAMINS W/ FOLIC ACID TABLET (FP) PO SCH (10:03)
[2021-03-31] MEDS: IBUPROFEN 400 MG TABLET (FP) PO PRN (10:03)
[2021-03-31] MEDS: THIAMINE HCL 100 MG TABLET (FP) PO SCH (21:26)
[2021-03-31] MEDS: MELATONIN 5 MG TABLETS PO PRN (21:26)
[2021-04-01 09:14] VITALS: TEMP 98.6
[2021-04-01] MEDS: TAMSULOSIN HCL 0.4 MG CAP PO SCH (09:44)
[2021-04-01] MEDS: CALCIUM 500MG/VIT-D 200 UNITS COMBO TABLET (FP) PO SCH (09:44)
[2021-04-01] MEDS: HYDROCHLOROTHIAZIDE 12.5 MG CAPSULE (FP) PO SCH (09:44)
[2021-04-01] MEDS: LACTOBACILLUS ACIDOPHILUS 1 TABLET PO SCH (09:44)
[2021-04-01] MEDS: CHOLECALCIFEROL (VIT D3) 1,000 UNIT (25 MCG) TABLET PO SCH (09:44)
[2021-04-01] MEDS: amLODIPine BESYLATE 5 MG TABLET (FP) PO SCH (09:44)
[2021-04-01] MEDS: PANTOPRAZOLE 40 MG TABLET PO SCH (09:44)
[2021-04-01] MEDS: PRENATAL VITAMINS W/ FOLIC ACID TABLET (FP) PO SCH (09:44)
[2021-04-01] MEDS: ASPIRIN 325 MG TABLET PO SCH (09:44)
[2021-04-01] MEDS: ZINC SULFATE 220 MG CAPSULE (FP) PO SCH (09:45)
[2021-04-01] MEDS: MELATONIN 5 MG TABLETS PO PRN (21:20)
[2021-04-01] MEDS: THIAMINE HCL 100 MG TABLET (FP) PO SCH (21:20)
[2021-04-02 07:28] VITALS: BP 157/85; PULSE 80
[2021-04-02] MEDS: PANTOPRAZOLE 40 MG TABLET PO SCH (10:30)
[2021-04-02] MEDS: CHOLECALCIFEROL (VIT D3) 1,000 UNIT (25 MCG) TABLET PO SCH (10:31)
[2021-04-02] MEDS: ASPIRIN 325 MG TABLET PO SCH (10:31)
[2021-04-02] MEDS: CALCIUM 500MG/VIT-D 200 UNITS COMBO TABLET (FP) PO SCH (10:31)
[2021-04-02] MEDS: PRENATAL VITAMINS W/ FOLIC ACID TABLET (FP) PO SCH (10:31)
[2021-04-02] MEDS: TAMSULOSIN HCL 0.4 MG CAP PO SCH (10:31)
[2021-04-02] MEDS: ZINC SULFATE 220 MG CAPSULE (FP) PO SCH (10:31)
[2021-04-02] MEDS: HYDROCHLOROTHIAZIDE 12.5 MG CAPSULE (FP) PO SCH (10:32)
[2021-04-02] MEDS: amLODIPine BESYLATE 5 MG TABLET (FP) PO SCH (10:32)
[2021-04-02] MEDS: LACTOBACILLUS ACIDOPHILUS 1 TABLET PO SCH (10:32)
== END 2021-04-02 11:00 | disposition home or self-care (01) | DRG 895 ==
LOC: YASAS 08:49 → Y6N 12:49 → Y3W 03-28 12:12
PROVIDERS: ADMIT Allergy & Immunology; ATTEND Allergy & Immunology
PROC: HZ2ZZZZ Detoxification Services for Substance Abuse Treatment (ICD-10-PCS; 2021-03-25)
PROC: HZ42ZZZ Group Counseling for Substance Abuse Treatment, Cognitive-Behavioral (ICD-10-PCS; principal; 2021-03-27)
DX: F10.20 Alcohol dependence, uncomplicated (principal); F41.8 Other specified anxiety disorders; F34.1 Dysthymic disorder; F32.A Depression, unspecified; I10 Essential (primary) hypertension; J44.9 Chronic obstructive pulmonary disease, unspecified; K21.9 Gastro-esophageal reflux disease without esophagitis; M54.50 Low back pain, unspecified; G89.29 Other chronic pain; Z85.46 Personal history of malignant neoplasm of prostate; Z88.8 Allergy status to other drugs, medicaments and biological substances
CPT/HCPCS: 36415; 80053; 82746; 82962; 85027; 86780; C9803-CS; U0003; U0005

== ENCOUNTER 2021-07-29 08:33 | Inpatient (IN) | payer OTHER ==
[2021-07-29 09:40] VITALS: BMI 30.4
[2021-07-29] MEDS ORDERED: NICOTINE 10 MG CARTRIDGE (INHALER) IH PRN (11:30)
[2021-07-29] MEDS ORDERED: BENZOCAINE/MENTHOL (CHLORASEPTIC ) LOZENGE MM PRN (11:30)
[2021-07-29] MEDS ORDERED: DICYCLOMINE HCL 10 MG CAPSULE PO PRN (11:30)
[2021-07-29] MEDS ORDERED: LOPERAMIDE HCL 2 MG CAPSULE PO PRN (11:30)
[2021-07-29] MEDS ORDERED: METHOCARBAMOL 500 MG TABLET PO PRN (11:30)
[2021-07-29] MEDS ORDERED: MAGNESIUM CITRATE 300 ML BOTTLE PO PRN (11:30)
[2021-07-29] MEDS ORDERED: BISMUTH SUBSALICYLATE 524 MG/30 ML PO PRN (11:30)
[2021-07-29] MEDS ORDERED: ACETAMINOPHEN 325 MG TABLET (FP) PO PRN ×2 (11:30)
[2021-07-29] MEDS ORDERED: ONDANSETRON *ODT* 4 MG TABLET SL PRN (11:30)
[2021-07-29] MEDS ORDERED: MAGNESIUM HYDROX 2400MG/30ML ORAL SUSPENSION 30 ML CUP PO PRN (11:30)
[2021-07-29] MEDS ORDERED: MAG HYDROX/AL HYDROX/SIMETH 30 ML UNIT-DOSE CUP PO PRN (11:30)
[2021-07-29] MEDS: hydrOXYzine PAMOATE 25 MG CAPSULE (FP) PO SCH ×3 (13:53→22:40)
[2021-07-29] MEDS: MELATONIN 5 MG TABLETS PO SCH (22:41)
[2021-07-29] MEDS: THIAMINE HCL 100 MG TABLET (FP) PO SCH (22:41)
[2021-07-30] MEDS: hydrOXYzine PAMOATE 25 MG CAPSULE (FP) PO SCH ×5 (05:03→23:04)
[2021-07-30] MEDS: PANTOPRAZOLE 20 MG TABLET PO SCH (10:37)
[2021-07-30] MEDS: TAMSULOSIN HCL 0.4 MG CAP PO SCH (10:37)
[2021-07-30] MEDS: PRENATAL VITAMINS W/ FOLIC ACID TABLET (FP) PO SCH (10:37)
[2021-07-30] MEDS: HYDROCHLOROTHIAZIDE 12.5 MG CAPSULE (FP) PO SCH (10:37)
[2021-07-30 11:59] LABS: HEMATOCRIT 40.3 % (35.4-49); HEMOGLOBIN 13.7 GM/dL (11.7-16.9); MCH 32.2 pg (25.7-33.7); MCHC 33.9 g/dl (32.0-35.9); MEAN PLT VOLUME 8.3 fl (7.5-11.1); PLATELET COUNT 226 10^3/uL (134-434); RBC 4.25 M/mm3 (4.00-5.60); RDW 13.3 % (11.9-15.9); WHITE BLOOD COUNT 5.7 K/mm3 (4.0-10.0)
[2021-07-30 12:06] LABS: BLOOD UREA NITROGEN 20.6 mg/dL (7-18); CALCIUM 8.9 mg/dL (8.5-10.1)
[2021-07-30 12:09] LABS: CREATININE 1.2 mg/dL (0.55-1.3)
[2021-07-30 12:11] LABS: BILIRUBIN,TOTAL 0.3 mg/dL (0.2-1); TOT PROT 6.2 g/dl (6.4-8.2)
[2021-07-30] MEDS: ASPIRIN 325 MG TABLET PO SCH (14:45)
[2021-07-30] MEDS: THIAMINE HCL 100 MG TABLET (FP) PO SCH (23:03)
[2021-07-30] MEDS: MELATONIN 5 MG TABLETS PO SCH (23:04)
[2021-07-31] MEDS: hydrOXYzine PAMOATE 25 MG CAPSULE (FP) PO SCH ×2 (05:14→10:04)
[2021-07-31 08:58] VITALS: BP 129/93; PULSE 87; TEMP 98.1
[2021-07-31] MEDS: PANTOPRAZOLE 20 MG TABLET PO SCH (10:04)
[2021-07-31] MEDS: PRENATAL VITAMINS W/ FOLIC ACID TABLET (FP) PO SCH (10:04)
[2021-07-31] MEDS: TAMSULOSIN HCL 0.4 MG CAP PO SCH (10:04)
[2021-07-31] MEDS: ASPIRIN 325 MG TABLET PO SCH (10:05)
[2021-07-31] MEDS: HYDROCHLOROTHIAZIDE 12.5 MG CAPSULE (FP) PO SCH (10:05)
== END 2021-07-31 12:45 | disposition other institution (70) | DRG 897 ==
LOC: YASAS 08:33 → Y6N 12:19
PROVIDERS: ADMIT Allergy & Immunology; ATTEND Surgery
PROC: HZ2ZZZZ Detoxification Services for Substance Abuse Treatment (ICD-10-PCS; principal; 2021-07-29)
DX: F10.230 Alcohol dependence with withdrawal, uncomplicated (principal); F14.20 Cocaine dependence, uncomplicated; F13.230 Sedative, hypnotic or anxiolytic dependence with withdrawal, uncomplicated; F17.210 Nicotine dependence, cigarettes, uncomplicated; F34.1 Dysthymic disorder; I10 Essential (primary) hypertension; J44.9 Chronic obstructive pulmonary disease, unspecified; K21.9 Gastro-esophageal reflux disease without esophagitis; M19.041 Primary osteoarthritis, right hand; M19.042 Primary osteoarthritis, left hand; N40.0 Benign prostatic hyperplasia without lower urinary tract symptoms; R73.9 Hyperglycemia, unspecified; Z96.612 Presence of left artificial shoulder joint; Z87.828 Personal history of other (healed) physical injury and trauma; Z85.46 Personal history of malignant neoplasm of prostate; Z88.8 Allergy status to other drugs, medicaments and biological substances
CPT/HCPCS: 36415; 80053; 85027; 86780; C9803-CS; U0003; U0005